=== PATIENT | female | born 1995 | race Caucasian/White ===

== ENCOUNTER 2022-01-17 14:53 | Outpatient (CLI) | payer OTHER ==
[2022-01-17] MEDS ORDERED: PRENATAL TABLE1 EAC3 PO (14:57)
== END 2022-01-19 04:01 | disposition home or self-care (01) ==
LOC: OBS/DEL 14:53
PROVIDERS: ATTEND Obstetrics & Gynecology
DX: O46.92 Antepartum hemorrhage, unspecified, second trimester (principal); Z3A.22 22 weeks gestation of pregnancy

== ENCOUNTER 2022-05-02 11:46 | Inpatient (IN) | payer OTHER ==
[~2022-05-02] VITALS: Ht 154.9 cm; Wt 3.2 kg
[~2022-05-02 11:46] MED LIST: PRENATAL TABLE1 EAC3 PO
== END 2022-05-16 16:15 | disposition home or self-care (01) | DRG 788 ==
LOC: OB/GYN 05-12 13:00 → LDR 05-13 06:46 → O/R 05-14 13:27 → OB/GYN 05-14 17:24
PROVIDERS: ADMIT Obstetrics & Gynecology; ATTEND Obstetrics & Gynecology
PROC: 4A1HXCZ Monitoring of Products of Conception, Cardiac Rate, External Approach (ICD-10-PCS; 2022-05-13)
PROC: 10D00Z1 Extraction of Products of Conception, Low, Open Approach (ICD-10-PCS; principal; 2022-05-14 11:15)
DX: O33.8 Maternal care for disproportion of other origin (principal); Z3A.40 40 weeks gestation of pregnancy; Z37.0 Single live birth; Z20.822 Contact with and (suspected) exposure to COVID-19